=== PATIENT | female | born 1990 | race Caucasian/White ===

== ENCOUNTER 2023-07-14 13:30 | Outpatient (CLI) | payer OTHER ==
--- NOTE | 2023-07-14 20:33 | XRAY Report ---
PROCEDURE: Chest 2V INDICATIONS: CHRONIC COUGH TECHNIQUE: 2 views of the chest were acquired. COMPARISON: None. FINDINGS: Surgical changes and devices: None. Lungs and pleura: No pleural effusions or pneumothorax. Lungs are clear. Mediastinum: Mediastinal contours appear normal. Heart size is normal. Bones and chest wall: No suspicious bony lesions. Overlying soft tissues appear unremarkable. IMPRESSION: No acute cardiopulmonary process. Reviewed by: Zabrina Clemens MD on 07/14/2023 8:31 PM PDT Approved by: Zabrina Clemens MD on 07/14/2023 8:31 PM PDT Station ID: [id number]
== END 2023-07-14 13:45 | disposition home or self-care (01) ==
LOC: DI.N 13:30
PROVIDERS: ATTEND Physician Assistant
DX: R05.3 Chronic cough (principal)